=== PATIENT | female | born 1955 | race Two or more races ===

== ENCOUNTER 2020-05-31 01:17 | Emergency (ER) | payer MEDICARE, OTHER ==
[~2020-05-31] VITALS: Ht 162.6 cm; Wt 90.7 kg
--- NOTE | 2020-05-31 01:30 | NUR ---
ED Nurse Note: PAtient brought in by ambulance [facility] from [facility] with c/o abdominal pain and vomiting onset last night. Pain located at epigastric region. Patient vomited 5x yesterday and reported loose red stools. Patient has hx of colon CA and cholecystectomy and DM. PAtient was diaphoretic coming in. Triage BS 352. Patient denies CP/SOB/, BP at 214/113 at triage, no fever and chills. Placed on monitor bed
--- NOTE | 2020-05-31 01:31 | NUR ---
ED Nurse Note: ERMD at bedside
[2020-05-31] MEDS ORDERED: NORCO 10-325 T1 EACH ORAL (01:35)
[2020-05-31] MEDS ORDERED: HUMALOG100 UNIT/4 SUBQ (01:35)
[2020-05-31] MEDS ORDERED: GLIPIZIDE5 MG ORAL (01:35)
[2020-05-31] MEDS ORDERED: BISACODYL10 M1 RC (01:35)
[2020-05-31] MEDS ORDERED: LISINOPRIL5 MG ORAL (01:35)
[2020-05-31] MEDS ORDERED: NEURONTIN100 MG ORAL (01:35)
[2020-05-31] MEDS ORDERED: PRAVACHOL20 MG ORAL (01:35)
[2020-05-31] MEDS ORDERED: ADVAIR 250-501 EACH INH (01:35)
[2020-05-31] MEDS ORDERED: CYCLOBENZAPRINE10 MG ORAL (01:35)
[2020-05-31] MEDS ORDERED: POLYETHYLENE GL17 GM ORAL (01:35)
[2020-05-31] MEDS ORDERED: PROTONIX40 MG ORAL (01:35)
[2020-05-31] MEDS ORDERED: ACETAMINOPHEN325 M1 ORAL (01:35)
[2020-05-31] MEDS ORDERED: JANUVIA25 MG ORAL (01:35)
[2020-05-31] MEDS ORDERED: AMBIEN10 M1 ORAL (01:35)
[2020-05-31] MEDS ORDERED: LIDODERM700 M1 TOPIC (01:35)
--- NOTE | 2020-05-31 01:49 | Emergency Room Report ---
History of Present Illness General Chief Complaint: Abdominal Pain Source: Patient Present Illness HPI Disclaimer: Please note that this report is being documented using [employer] technology. This can lead to erroneous entry secondary to incorrect interpretation by the dictating instrument. HPI: 64-year-old female presents from nursing facility for evaluation abdominal pain and vomiting. Has a history of hypertension, hyperlipidemia, diabetes, COPD, stroke and colon cancer status post resection, chemotherapy and radiation in 2019 with ostomy reversal. Symptom onset was yesterday (05/30) afternoon. She also notes loose stools that are red in appearance. Denies prior history of bowel obstruction. Also has a history of cholecystectomy. Denies recent fever, chills, chest pain, shortness of breath, palpitations. She noted diaphoresis. Her abdominal pain is located in the periumbilical and epigastric region. Does not radiate though states her whole torso hurts when she is vomiting. Did not take medication prior to arrival. No exacerbating or relieving factors. PMH: Hypertension, hyperlipidemia, diabetes, sleep apnea, COPD, TBI, CVA, colon cancer, fibromyalgia, substance use disorder listed in medical chart PSH: Colonic resection with ostomy and ostomy reversal, cholecystectomy Allergies: Aspirin, azithromycin, Keflex, iodine contrast, penicillin, sulfa medications Social Hx: Substance abuse listed in medical chart Allergies: Coded Allergies: ASPIRIN (Verified Allergy, Unknown, 05/31/20) AZITHROMYCIN (Verified Allergy, Unknown, 05/31/20) CEPHALEXIN (Verified Allergy, Unknown, 05/31/20) IODINE (Verified Allergy, Unknown, 05/31/20) LIRAGLUTIDE (Verified Allergy, Unknown, 05/31/20) SODIUM PHOSPHATE (Verified Allergy, Unknown, 05/31/20) Uncoded Allergies: PENICILLIN (Allergy, Unknown, 05/31/20) SULFA (Allergy, Unknown, 05/31/20) COVID-19 Screening Contact w/high risk pt: No Experienced COVID-19 symptoms?: Yes COVID-19 Testing performed WINDOWS SERVER SPECIALIST: No Nursing Documentation-PMH Hx Cardiac Problems: Yes - hyperlipidemia, colon cancer, fibromyalgia Hx Hypertension: Yes Hx COPD: Yes Hx Diabetes: Yes Hx Cerebrovascular Accident: Yes Review of Systems All Other Systems: negative except mentioned in HPI Physical Exam Vital Signs Date Time Temp Pulse Resp B/P (MAP) Pulse Ox O2 Delivery O2 Flow Rate FiO2 05/31/20 01:21 98.6 96 20 213/119 (150) 89 Room Air General: Awake and alert, appears uncomfortable, hypertensive HEENT: NC/AT. EOMI. Cardiovascular: Borderline tachycardia. S1 and S2 normal. No murmur appreciated Resp: Normal work of breathing. No cough, wheezing or crackles appreciated Abdomen: Abdomen is soft, nondistended. Morbidly obese abdomen. Midline surgical scar is clean dry and intact. Unable to palpate for mass. Tenderness palpation in the epigastrium, upper quadrants and periumbilical region. Skin: Intact. No abrasions, laceration or rash over the exposed skin MSK: Normal tone and bulk. Moving all extremities. No obvious deformity. Neuro: Awake and alert. Mentating appropriately. Procedures Critical Care Time Critical Care Time Total critical care time: Approximately 90 minutes Due to a high probability of clinically significant, life threatening deterioration, the patient required the highest level of preparedness to intervene emergently and I personally spent this critical care time directly and personally managing the patient. This critical care time included obtaining a history, examining the patient, pulse oximetry, ordering and reviewing studies, ordering treatments, evaluating response to treatment and updating management plan as needed, frequent reassessment and discussion with other providers as well as arranging for ultimate disposition. This critical to care time was performed to assess and manage the high probability of life-threatening deterioration that could result in multiorgan failure. This critical care time is separate from the separately billable procedures and treating other patients. Medical Decision Making Diagnostic Impression: Primary Impression: Abdominal pain Additional Impressions: Hyperglycemia Leukocytosis Fecal impaction Small bowel obstruction Ventral hernia STEMI (ST elevation myocardial infarction) Elevated d-dimer Sepsis ER Course Is a 64-year-old female presenting from nursing facility for evaluation abdominal pain and vomiting with onset late last night. Differential includes was not limited to gastritis, gastroenteritis, GI bleed, pancreatitis, nephrolithiasis, DKA, UTI, pyelonephritis, bowel obstruction, mesenteric ischemia, ACS, GERD, esophagitis, among others. IV line established. Patient treated with antiemetics, IV fluids. Initial EKG shows ST segment elevation in inferior leads without reciprocal depression at there is T wave inversion in aVR. A repeat EKG showed persistent though less pronounced ST segment elevation though now there are inverted T waves in III. Initial troponin is negative. Discussed with cardiology at [facility] who believe the picture is complicated and may be STEMI vs NSTEMI vs heart strain however they have accepted patient for higher level of care. Dr. Ramos is the attending gas scrubber operator. Patient reports anaphylactic reaction to aspirin and therefore was not given. Concern for possible GI bleed as well as the patient reported red color in her stool along with her abdominal pain late yesterday afternoon. We will also hold heparin and antiplatelet agents. D-dimer was elevated. Patient notes contrast dye allergy therefore cannot obtain CTA. Again anticoagulants were held due to possible GI bleed. White count elevated at 18.[address] scan shows severe fecal impaction, air-fluid levels consistent with early small bowel obstruction. There is a ventral hernia noted with omental fat only no evidence of incarceration as well as a small to moderate hiatal hernia and prior evidence of cholecystectomy. Blood cultures sent and patient treated with Zosyn. Hyperglycemia noted with glucose of 373 but negative acetone. No concern for DKA at this time. Treated with insulin. Lactate elevated. She was receiving sepsis level fluids at 30 cc/kg. Discussed this case with Dr. Patel who will be the accepting hospitalist at [facility]. Agrees with this treatment plan. A repeat troponin will be sent as approaching 3-hour mandy. Results will be faxed to the accepting facility. Will arrange transport. Sepsis reevaluation: I, Dr. Bradley Edgar, reevaluated the patient Capillary refill: Less than 2 seconds MAP: 88 Heart rate: 97 Respiratory rate: 17 Initial Lactate: 3.5 Repeat Lactate: Pending Pressors: Not indicated at this time No signs of fluid overload Laboratory Tests Test 05/31/20 02:00 White Blood Count 18.4 K/UL (4.8-10.8) H Red Blood Count 5.79 M/UL (4.20-5.40) H Hemoglobin 16.8 G/DL (12.0-16.0) H Hematocrit 52.2 % (37.0-47.0) H Mean Corpuscular Volume 90 FL (80-99) Mean Corpuscular Hemoglobin 29.0 PG (27.0-31.0) Mean Corpuscular Hemoglobin Concent 32.1 G/DL (32.0-36.0) Red Cell Distribution Width 15.3 % (11.6-14.8) H Platelet Count 276 K/UL (150-450) Mean Platelet Volume 6.6 FL (6.5-10.1) Neutrophils (%) (Auto) % (45.0-75.0) Lymphocytes (%) (Auto) % (20.0-45.0) Monocytes (%) (Auto) % (1.0-10.0) Eosinophils (%) (Auto) % (0.0-3.0) Basophils (%) (Auto) % (0.0-2.0) Differential Total Cells Counted 100 Neutrophils % (Manual) 91 % (45-75) H Lymphocytes % (Manual) 7 % (20-45) L Monocytes % (Manual) 2 % (1-10) Eosinophils % (Manual) 0 % (0-3) Basophils % (Manual) 0 % (0-2) Band Neutrophils 0 % (0-8) Platelet Estimate Adequate Platelet Morphology Normal Sodium Level 133 MMOL/L (136-145) L Potassium Level 3.9 MMOL/L (3.5-5.1) Chloride Level 95 MMOL/L (98-107) L Carbon Dioxide Level 21 MMOL/L (21-32) Anion Gap 17 mmol/L (5-15) H Blood Urea Nitrogen 14 mg/dL (7-18) Creatinine 1.1 MG/DL (0.55-1.30) Estimated Glomerular Filtration Rate 50.3 mL/min (>60) Glucose Level 373 MG/DL (74-106) H Calcium Level 9.9 MG/DL (8.5-10.1) Total Bilirubin 0.4 MG/DL (0.2-1.0) Aspartate Amino Transferase (AST) 20 U/L (15-37) Alanine Aminotransferase (ALT) 22 U/L (12-78) Alkaline Phosphatase 89 U/L (46-116) Troponin I 0.000 ng/mL (0.000-0.056) Total Protein 9.6 G/DL (6.4-8.2) H Albumin 4.8 G/DL (3.4-5.0) Globulin 4.8 g/dL Albumin/Globulin Ratio 1.0 (1.0-2.7) Lipase 155 U/L (73-393) Acetone Level Negative (NEGATIVE) EKG Diagnostic Results Troponin ordered: Yes When was troponin ordered?: May 31, 2020 EKG Time: 01:38 Rate: tachycardiac Other Impression ST segment elevation III, aVF without reciprocal depression. ASA given to the pt in ED: No - Patient reports allergy Rhythm Strip Diag. Results Rhythm Strip Time: :38 EP Interpretation: yes Rate: 105 Rhythm: NSR, no PVC's, no ectopy Chest X-Ray Diagnostic Results Chest X-Ray Diagnostic Results : Chest X-Ray Ordered: Yes # of Views/Limited/Complete: 1 View Indication: Chest Pain EP Interpretation: Yes Interpretation: no consolidation, no effusion, no pneumothorax, other - Cardiomegaly Impression: Other - Cardiomegaly Electronically Signed by: Electronically signed by Dr. Bradley Edgar MD CT/MRI/US Diagnostic Results CT/MRI/US Diagnostic Results : Impression IMPRESSION: 1. Numerous, mildly prominent loops of small bowel, measuring up to 3 cm, suspicious for early/partial small bowel obstruction. Anastomotic sutures are located within the right mid abdomen. Severe fecal retention with liquid stool throughout the right colon, diarrheal disease/constipation. The dilated small bowel may be secondary to the severe fecal retention. Reassess patient following relief of constipation. 2. Ventral abdominal wall hernia to the right of midline, which contains omental fat and measures approximately 7.6 x 1.8 cm. The hernia neck measures approximately 2.5 cm. 3. Mild-moderate hiatal hernia. 4. Cholecystectomy. Radiologist: Kenji Saenz MD Electronically Signed: 05/31/20 03:17 Study ready at 02:40 and initial results transmitted at 03:17 Last Vital Signs Date Time Temp Pulse Resp B/P (MAP) Pulse Ox O2 Delivery O2 Flow Rate FiO2 05/31/20 01:21 98.6 96 20 213/119 (150) 89 Room Air Disposition: SHORT-TERM HOSP Condition: Serious Bradley Edgar MD May 31, 2020 01:49
--- NOTE | 2020-05-31 02:00 | NUR ---
ED Nurse Note: Blood and rapid covid test sent to lab
[2020-05-31 02:06] LABS: HEMATOCRIT 52.2 % (37.0-47.0); HEMOGLOBIN 16.8 G/DL (12.0-16.0); MEAN CORPUSCULAR VOLUME 90 FL (80-99); PLATELET COUNT 276 K/UL (150-450); RED BLOOD COUNT 5.79 M/UL (4.20-5.40); RED CELL DISTRIBUTION WIDTH 15.3 % (11.6-14.8); WHITE BLOOD COUNT 18.4 K/UL (4.8-10.8)
[2020-05-31 02:17] LABS: CALCIUM 9.9 MG/DL (8.5-10.1); CREATININE 1.1 MG/DL (0.55-1.30); POTASSIUM 3.9 MMOL/L (3.5-5.1)
[2020-05-31 02:21] VITALS: BP 149/85
[2020-05-31 02:21] LABS: ALBUMIN 4.8 G/DL (3.4-5.0); BILIRUBIN,TOTAL 0.4 MG/DL (0.2-1.0)
[2020-05-31] MEDS ORDERED: Insulin Human Regular 100units/ml 3ml IV ONE (02:30)
[2020-05-31 02:47] VITALS: BP 141/86
--- NOTE | 2020-05-31 03:18 | Diagnostic Imaging Report ---
EXAM: CT Abdomen and Pelvis Without Intravenous Contrast CLINICAL HISTORY: ABD PAIN TECHNIQUE: Axial computed tomography images of the abdomen and pelvis without intravenous contrast. CTDI is 16.40 mGy and DLP is 918.10 mGy-cm. One or more of the following dose reduction techniques were used: automated exposure control, adjustment of the mA and/or kV according to patient size, use of iterative reconstruction technique. COMPARISON: No relevant prior studies available. FINDINGS: Lung bases: Atelectasis at the lung bases. Cardiomegaly. No pericardial effusion. Mediastinum: Mild-moderate hiatal hernia. ABDOMEN: Liver: Unremarkable. Gallbladder and bile ducts: Cholecystectomy. No ductal dilation. Pancreas: Unremarkable. No ductal dilation. Spleen: Unremarkable. No splenomegaly. Adrenals: Unremarkable. No mass. Kidneys and ureters: No hydronephrosis or nephrolithiasis. No obstructive uropathy. Stomach and bowel: Numerous, mildly prominent loops of small bowel, measuring up to 3 cm, suspicious for early/partial small bowel obstruction. Anastomotic sutures are located within the right mid abdomen. Severe fecal retention with liquid stool throughout the right colon, diarrheal disease/constipation. The dilated small bowel may be secondary to the severe fecal retention. Reassess patient following relief of constipation. PELVIS: Appendix: No findings to suggest acute appendicitis. Bladder: Unremarkable. No stones. Reproductive: Unremarkable as visualized. ABDOMEN and PELVIS: Intraperitoneal space: Unremarkable. No free air. No significant fluid collection. Bones/joints: Degenerative change of the spine. No acute fracture. No dislocation. Soft tissues: Ventral abdominal wall hernia to the right of midline, which contains omental fat and measures approximately 7.6 x 1.8 cm. The hernia neck measures approximately 2.5 cm. Vasculature: Atherosclerotic calcifications of the aorta. No abdominal aortic aneurysm. Lymph nodes: Unremarkable. No enlarged lymph nodes. IMPRESSION: 1. Numerous, mildly prominent loops of small bowel, measuring up to 3 cm, suspicious for early/partial small bowel obstruction. Anastomotic sutures are located within the right mid abdomen. Severe fecal retention with liquid stool throughout the right colon, diarrheal disease/constipation. The dilated small bowel may be secondary to the severe fecal retention. Reassess patient following relief of constipation. 2. Ventral abdominal wall hernia to the right of midline, which contains omental fat and measures approximately 7.6 x 1.8 cm. The hernia neck measures approximately 2.5 cm. 3. Mild-moderate hiatal hernia. 4. Cholecystectomy.
[2020-05-31] MEDS ORDERED: Piperacillin/Tazobactam 3.375 GM in NS 110 ML IVPB ONE (03:45)
--- NOTE | 2020-05-31 04:30 | NUR ---
ED Nurse Note: Repeat lactic unable to send due to patient was picked up by ambulance
--- NOTE | 2020-05-31 04:30 | NUR ---
ED Nurse Note: Report given to RICH OSPINA at [facility]
--- NOTE | 2020-05-31 04:59 | NUR ---
ER DISCHARGE NOTE: Patient was picked up by [facility] going to [facility]. Pts packet and report given to ambulance personnel. PAtient VSS as documented. Patient has IV access on left and right hand. pt took all belongings. Patient transported safely to [facility] and transferred to ambulance.
[2020-05-31 05:01] VITALS: BP 141/86
--- NOTE | 2020-05-31 15:29 | Diagnostic Imaging Report ---
Indication: Reason For Exam: CP Technique: One view of the chest Comparison: none Findings: Lungs and pleural spaces are clear. Heart size is normal. Impression: No acute process
--- NOTE | 2020-06-01 04:14 | Cardiology Report ---
APPROVED REPORT EKG Measurement Heart [id number] MD [id number] <Conclusion> Sinus tachycardia Left posterior fascicular block Inferior infarct, age undetermined Anterior infarct, age undetermined Abnormal ECG
--- NOTE | 2020-06-01 04:14 | Cardiology Report ---
APPROVED REPORT EKG Measurement Heart [id number] WI [id number] <Conclusion> Sinus tachycardia Inferior infarct, age undetermined Possible Anterior infarct, age undetermined Abnormal ECG
== END 2020-05-31 05:13 | disposition short-term general hospital (02) ==
LOC: EDBD 01:17 → EMR 02:09
DX: A41.9 Sepsis, unspecified organism (principal); I21.3 ST elevation (STEMI) myocardial infarction of unspecified site; R10.9 Unspecified abdominal pain; E11.65 Type 2 diabetes mellitus with hyperglycemia; D72.829 Elevated white blood cell count, unspecified; K56.41 Fecal impaction; K56.609 Unspecified intestinal obstruction, unspecified as to partial versus complete obstruction; R79.89 Other specified abnormal findings of blood chemistry; Z86.73 Personal history of transient ischemic attack (TIA), and cerebral infarction without residual deficits; E78.5 Hyperlipidemia, unspecified; G47.30 Sleep apnea, unspecified; I10 Essential (primary) hypertension; J44.9 Chronic obstructive pulmonary disease, unspecified; Z87.820 Personal history of traumatic brain injury; Z90.49 Acquired absence of other specified parts of digestive tract; Z88.6 Allergy status to analgesic agent; Z88.0 Allergy status to penicillin; Z88.2 Allergy status to sulfonamides; Z91.041 Radiographic dye allergy status; M79.7 Fibromyalgia; Z85.038 Personal history of other malignant neoplasm of large intestine; E66.01 Morbid (severe) obesity due to excess calories; R00.0 Tachycardia, unspecified; I51.7 Cardiomegaly; K43.9 Ventral hernia without obstruction or gangrene; K44.9 Diaphragmatic hernia without obstruction or gangrene
CPT/HCPCS: 36415; 71045; 74176; 80053; 82009; 83605; 83690; 84484; 85007; 85025; 85379; 85610; 85730; 87040; 93005; 96361; 96365; 96375; 99291; 99292; J1815; J2405; J2543; J7030; U0002